=== PATIENT | female | born 1945 | race Caucasian/White ===

== ENCOUNTER → 2016-07-27 | Outpatient (CLI) | payer MEDICARE ==
[2016-07-27 11:12] LABS: Basophils % (A) 0 %; CH 29.2; CHCM 31.4; Eosinophils # (A) 0.1 k/uL (0-0.7); Eosinophils % (A) 2 %; HCT 41.3 % (34.0-46.0); HDW 2.25; HGB 13.1 gm/dL (11.4-16.0); Luc # (Auto) 0.13; Luc % (Auto) 2; Lymphocytes # (A) 1.6 k/uL (1.0-4.8); Lymphocytes % (A) 24 %; MCH 29.5 pg (25.0-35.0); MCHC 31.6 g/dL (31.0-37.0); MCV 93.3 fL (80.0-100.0); Mean Platelet Volume 6.9; Monocytes # (A) 0.3 k/uL (0-1.0); Monocytes % (A) 5 %; Neutrophils # (A) 4.4 k/uL (1.3-7.7); Neutrophils % (A) 66 %; RBC 4.43 m/uL (3.80-5.40); RDW 13.1 % (11.5-15.5); WBC 6.7 k/uL (3.8-10.6); WBC (Perox) 7.06
[2016-07-27 11:18] LABS: INR 1.1 (<1.1)
[2016-07-27 11:25] LABS: Partial Thromboplastin Time 22.9 sec (22.0-30.0)
[2016-07-27 11:30] LABS: Potassium 4.7 mmol/L (3.5-5.1)
== END | disposition home or self-care (01) ==
LOC: LABPAT 10:22
PROVIDERS: ATTEND Orthopaedic Surgery
DX: Z01.812 Encounter for preprocedural laboratory examination (principal); M16.11 Unilateral primary osteoarthritis, right hip
CPT/HCPCS: 80051; 85025; 85610; 85730; 87070

== ENCOUNTER 2016-08-03 07:30 | Inpatient (IN) | payer MEDICARE ==
[2016-09-09 16:18] VITALS: BMI 39.3
--- NOTE | 2016-09-13 13:31 | HP ---
DATE OF SURGERY: 09/14/2016 Jaycee Lucero is a 70-year-old patient seen with progressive right hip pain. After we had treatment options discussed, she elected to proceed with direct anterior right total hip arthroplasty. Consent regarding the procedure was obtained. Medical clearance was provided per Dr. Mark Arteaga. Past medical history is noninsulin dependent diabetes, hypertension, hyperlipidemia. Past surgical history is cholecystectomy, gastric bypass surgery, hysterectomy. DAILY MEDICATIONS: Atenolol, hydrochlorothiazide, Losartan, metformin, multivitamin, simvastatin, spironolactone. ALLERGIES: TETRACYCLINE. SOCIAL HISTORY: Patient denies tobacco use. PHYSICAL EVALUATION OF THE RIGHT HIP: There is very limited range of motion with severe pain, diffuse weakness. Positive hip impingement sign. Straight leg raise is negative. Right lower extremity is about inch shorter than the left. Distal neurovascular exam is intact. Right hip radiographs reveal severe osteoarthritic changes. IMPRESSION: Right hip osteoarthritis. PLAN: Direct anterior right total hip arthroplasty. MARCELLO
[2016-09-14] MEDS ORDERED: ceFAZolin 2 GM in SODIUM CHLORIDE 0.9% 100 ML IVPB ONE (05:00)
[2016-09-14] MEDS ORDERED: MELOXICAM 7.5 MG TAB PO ONE (05:00)
[2016-09-14] MEDS ORDERED: ACETAMINOPHEN TAB 500 MG TAB PO ONE (05:00)
[2016-09-14] MEDS ORDERED: TRANEXAMIC ACID 1,000 MG in SODIUM CHLORIDE 0.9% 100 ML IVPB ONE (05:00)
[2016-09-14] MEDS ORDERED: ONDANSETRON 4 MG/2 ML VIAL IVP ONE (05:17)
[2016-09-14] MEDS ORDERED: HYDROmorphone 1 MG/ML 1 ML SYRINGE IVP PRN ×4 (05:17→13:08)
[2016-09-14] MEDS ORDERED: MIDAZOLAM 2 MG/2 ML VIAL IV PRN (05:17)
[2016-09-14] MEDS ORDERED: SCOPOLAMINE 1.5MG/72HR PATCH TRANSDERM ONE (05:17)
[2016-09-14] MEDS ORDERED: DEXAMETHASONE SOD PHOSPHATE 10 MG/ML 1 ML VIAL IV ONE (05:17)
[2016-09-14] MEDS ORDERED: LACTATED RINGERS 1,000 ML IV SCH (05:17)
[2016-09-14] MEDS ORDERED: LIDOCAINE 1% 20 ML VIAL (10MG/ML) FOR IV START INTRADERMA PRN (05:17)
[2016-09-14 09:45] LABS: Glucose,Whole Blood 123 mg/dL (75-99)
[2016-09-14] MEDS ORDERED: ROPIVACAINE 246.25 MG, EPINEPHrine 0.5 MG, KETOROLAC 30 MG, cloNIDine HCL/PF 80 MCG, WA... MISCELLANE ONE ×5 (10:38)
[2016-09-14] MEDS ORDERED: MIDAZOLAM 2 MG/2 ML VIAL ONE (10:52)
[2016-09-14] MEDS ORDERED: TRANEXAMIC ACID 1,000 MG/10 ML VIAL ONE (10:52)
[2016-09-14] MEDS ORDERED: ePHEDrine 50 MG/ML 1 ML AMP ONE (10:52)
[2016-09-14] MEDS ORDERED: diphenhydrAMINE 50 MG/ML 1 ML VIAL ONE (10:52)
[2016-09-14] MEDS ORDERED: PROPOFOL 10 MG/ML 20 ML VIAL IV ONE (10:52)
[2016-09-14] MEDS ORDERED: PHENYLEPHRINE-0.9% NACL SYG 1 MG/10 ML SYRINGE ONE (10:52)
[2016-09-14] MEDS ORDERED: KETAMINE 10 MG/ML 20 ML VIAL ONE (10:52)
[2016-09-14] MEDS ORDERED: GLYCOPYRROLATE 0.2 MG/ML 2 ML VIAL ONE (10:52)
[2016-09-14] MEDS ORDERED: SODIUM CHLORIDE 0.9% 100 ML BAG ONE (10:52)
[2016-09-14] MEDS ORDERED: LIDOCAINE 1% INJ 10MG/ML (20 ML MDV) ONE (10:52)
[2016-09-14] MEDS ORDERED: ceFAZolin 3,000 MG in SODIUM CHLORIDE 0.9% IRRIGATIO 3,000 ML IRRIGATION ONE (11:45)
--- NOTE | 2016-09-14 13:07 | P.OP ---
Date of Procedure: 09/14/16 Preoperative Diagnosis: Right hip osteoarthritis Postoperative Diagnosis: Right hip osteoarthritis Procedure(s) Performed: Direct anterior right total hip arthroplasty Implants: 1. Depuy Corail KA size 10 standard collar cementless femoral stem 2. Depuy Corail pinnacle acetabular shell 52 mm press-fit 3. Depuy Corail pinnacle polyethylene acetabular liner 52 mm OD 36 mm ID 4. Depuy metal femoral head 36 mm -2 Anesthesia: local, spinal Surgeon: Ezio Holliday Top Hat Body Maker #1: Sebastian Smith Estimated Blood Loss (ml): 200 Pathology: other (Femoral head) Condition: stable Disposition: PACU Indications for Procedure: 71-year-old patient seen was symptomatically right hip osteoarthritis. After having treatment options discussed, she elected to proceed with right total hip arthroplasty. Operative Findings: see description of procedure Description of Procedure: The patient was taken to the operative suite. Patient underwent a spinal anesthetic by the department of anesthesia. Patient was then transferred to the [place] table. Patient was given preoperative IV antibiotics and TXA. Both lower extremities were placed in standard leg spars. The hip was then prepped and draped in the normal sterile orthopedic fashion. A standard anterior incision was made beginning 3 cm lateral and 1 cm distal to the ASIS extending 10 cm. Dissection was then carried down through the subcutaneous soft tissues down to the fascia overlying the tensor fascia nima. An incision was now made through the fascia. Careful dissection was taken down exposing the tensor fascia nima muscle. A Cobra retractor was now placed along the medial femoral neck and a second one along the lateral femoral neck. The venous circumflex vessels were now identified, cauterized and clipped. We identified the anterior hip capsule. An incision was made through the hip capsule along the lateral border. Tag sutures were then placed along the anterior capsule and lateral capsule. We then performed a capsulotomy. Retractors were now placed around the femoral neck itself. A Cobra retractor was now placed along the anterior acetabulum. Good exposure was now noted of the femoral head/neck complex. Residual labrum was debrided out. We placed the extremity into 3 turns of fine traction. We were then able to introduce a skid in between the femoral head and acetabulum. A placed a awl into the femoral head. We took 2 turns of traction off the extremity. Rotation was now released. The femoral head was then dislocated without difficulty. Additional releasing was performed of the capsule. The head was then reduced. All traction was released. A femoral neck cut was now made with a sagittal saw. It was completed with an osteotome at the lateral neck area. The femoral head was now removed without difficulty. The extremity was now rotated to 60 of external rotation. It was locked in position. Residual labrum was now debrided out. Serial reaming was performed of the acetabulum. Once we reached the appropriate size and a trial was position and fit nicely. The appropriate size was now chosen opened and made available. It was introduced into the acetabulum without difficulty. The C-arm/fluoroscopy was now brought into the operative field. We made sure we had a true AP pelvic view. We now under direct C-arm/fluoroscopy introduced into the acetabular component with appropriate version and inclination. It was well seated but not as stable as I would like to be. I now introduced to 6.5 mm cancellus screws which gave a good bite and purchase. It was now very stable. I now irrigated the wound with pulse lavage mechanical irrigation. The C-arm was pulled back. An appropriate liner was introduced and clicked into position. It was felt to be stable. At this point retractors were removed. The extremity was now placed into 130 external rotation with no traction. The leg was now dropped to the ground and adducted. Appropriate retractors were now positioned along the proximal femur. We also placed our femoral look into position. Additional capsular releasing was performed to gain access to the proximal femur. We now used a box osteotome. A canal finder was now utilized. Serial broaching was now performed until we reached the appropriate size with good overall rotational stability. Appropriate calcar planing was performed. A trial head/ neck was placed into position. The hip was now reduced. The C-arm/fluoroscopy was brought back into the operative field. A spot film was obtained of the nonoperative hip. A spot film was obtained of the trial components. Overlays were performed, we noted good overall alignment and positioning for determining leg length. The C-arm/fluoroscopy was pulled back. Retractors were repositioned and the hip was dislocated. The leg was again taken down to the ground and adducted. Appropriate retractors were repositioned as well as the femoral hook. All trial components were removed. The femoral implant was opened along with the femoral head. The wound was irrigated with pulse lavage mechanical irrigation. The femoral implant was introduced with good purchase and fixation noted. The femoral head was introduced with good positioning and fixation noted. Retractors were now removed. The hip was now reduced. There appeared be good positioning of the hip. A second gram of TXA was given. Bipolar cautery had been utilized intermittently through the procedure for hemostasis. The wound was irrigated copiously with pulse lavage mechanical irrigation. The fascia was repaired with Vicryl suture. The subcutaneous soft tissues were repaired in layers with Vicryl suture. The skin was approximated with pernio/Dermabond. Sterile dressings were applied. Patient was then awakened, transferred to a bed and taken to recovery in stable condition. Tee CALVILLO assisted with the procedure.
[2016-09-14] MEDS ORDERED: NALOXONE 0.4 MG/ML 1 ML VIAL IV PRN (13:08)
[2016-09-14] MEDS ORDERED: ONDANSETRON 4 MG/2 ML VIAL IVP PRN (13:08)
--- NOTE | 2016-09-14 13:08 | XR ---
Limited right hip HISTORY: Anterior hip arthroplasty Intraoperative C-arm image documents the procedure
--- NOTE | 2016-09-14 13:09 | FL ---
Fluoroscopy HISTORY: Hip arthroplasty 27 seconds fluoroscopy time supplied to the referring clinician. 1 intraoperative C-arm images docum ent the procedure. See dictated report from orthopedic surgery.
[2016-09-14 13:47] LABS: Glucose,Whole Blood 152 mg/dL (75-99)
[2016-09-14] MEDS: LACTATED RINGERS 1,000 ML IV SCH (14:59)
[2016-09-14] MEDS ORDERED: traMADol 50 MG TAB PO STA (15:07)
[2016-09-14] MEDS: traMADol 50 MG TAB PO SCH ×2 (15:12→21:24)
[2016-09-14] MEDS: ceFAZolin 2 GM in SODIUM CHLORIDE 0.9% 100 ML IVPB SCH ×2 (15:40→23:00)
[2016-09-14 16:12] LABS: Glucose,Whole Blood 164 mg/dL (75-99)
[2016-09-14] MEDS: HYDROcodone/APAP 7.5-325MG 1 EACH TAB PO PRN ×2 (16:50→23:00)
[2016-09-14 20:28] LABS: Glucose,Whole Blood 231 mg/dL (75-99)
[2016-09-14] MEDS: SENNOSIDES-DOCUSATE SODIUM 1 EACH TAB PO SCH (21:07)
[2016-09-14] MEDS: ATORVASTATIN 10 MG TAB PO SCH (21:08)
[2016-09-14] MEDS: metFORMIN 500 MG TAB PO SCH (21:08)
[2016-09-14] MEDS: LOSARTAN 50 MG TAB PO SCH ×2 (21:08→21:20)
[2016-09-14] MEDS: INSULIN LISPRO (humaLOG) 300 UNIT/3 ML VIAL SQ SCH (21:08)
[2016-09-14] MEDS: hydrOXYzine PAMOATE 25 MG CAP PO PRN (23:00)
[2016-09-15] MEDS: LACTATED RINGERS 1,000 ML IV SCH (00:02)
[2016-09-15] MEDS: HYDROcodone/APAP 7.5-325MG 1 EACH TAB PO PRN ×3 (05:42→23:46)
[2016-09-15 07:08] LABS: Glucose,Whole Blood 139 mg/dL (75-99)
[2016-09-15 07:51] LABS: Basophils % (A) 0 %; CH 28.9; CHCM 31.5; Eosinophils % (A) 0 %; HCT 32.5 % (34.0-46.0); HDW 2.32; Luc # (Auto) 0.17; Luc % (Auto) 2; Lymphocytes # (A) 1.5 k/uL (1.0-4.8); Lymphocytes % (A) 16 %; MCH 28.9 pg (25.0-35.0); MCHC 31.4 g/dL (31.0-37.0); MCV 92.1 fL (80.0-100.0); Mean Platelet Volume 7.1; Monocytes # (A) 0.5 k/uL (0-1.0); Monocytes % (A) 5 %; Neutrophils # (A) 6.8 k/uL (1.3-7.7); Neutrophils % (A) 76 %; RBC 3.52 m/uL (3.80-5.40); WBC 8.9 k/uL (3.8-10.6); WBC (Perox) 9.07
[2016-09-15] MEDS: INSULIN LISPRO (humaLOG) 300 UNIT/3 ML VIAL SQ SCH ×4 (07:55→20:38)
[2016-09-15] MEDS: MELOXICAM 7.5 MG TAB PO SCH (07:56)
[2016-09-15] MEDS: CALCIUM CARB-VIT D 500MG-200UN 1 EACH TAB PO SCH (07:56)
[2016-09-15 07:57] LABS: HGB 10.2 gm/dL (11.4-16.0)
[2016-09-15] MEDS: FAMOTIDINE 20 MG TAB PO SCH (07:57)
[2016-09-15] MEDS: ATENOLOL 50 MG TAB PO SCH (07:57)
[2016-09-15] MEDS: metFORMIN 500 MG TAB PO SCH ×2 (07:57→20:38)
[2016-09-15] MEDS: ENOXAPARIN 40 MG/0.4 ML SYRINGE SQ SCH (07:57)
[2016-09-15] MEDS: CHOLECALCIFEROL 1,000 UNIT TAB PO SCH (07:57)
[2016-09-15] MEDS: traMADol 50 MG TAB PO SCH ×4 (07:58→21:05)
[2016-09-15] MEDS ORDERED: MULTIVITAMIN PO SCH (09:00)
[2016-09-15 11:51] LABS: Glucose,Whole Blood 133 mg/dL (75-99)
[2016-09-15 12:03] LABS: Hemoglobin A1C 6.9 % (4.2-6.1)
[2016-09-15] MEDS: MULTIVITAMINS, THERA 1 EACH TAB PO SCH (12:25)
--- NOTE | 2016-09-15 12:30 | P.CONS ---
History of Present Illness - Reason for Consult Consult date: 09/15/16 Medical management - History of Present Illness This is a 71-year-old female patient of Dr. Arteaga the past medical history of diabetes mellitus type 2, hypertension, osteoarthritis, sleep apnea with CPAP, skin cancer history, morbid obesity status post lap band procedure. Patient has been admitted under the care of Dr. Holliday status post anterior approach right total hip arthroplasty completed yesterday. Patient has had no postop complications. She denies any nausea, vomiting, chest pain or shortness of breath. She states she slept on and off during the night. She does complain of sore throat. Just complains of right leg pain with ambulation. Cook catheter remains in place. She has not passed gas or had a bowel movement. Dressing was changed this morning. Patient is planning for subacute rehab at [facility]. Review of Systems All systems: negative Constitutional: Denies chills, Denies fever Eyes: denies blurred vision, denies pain Ears, nose, mouth and throat: Reports sore throat, Denies dental pain, Denies dysphagia, Denies headache, Denies mouth pain, Denies swelling in throat Cardiovascular: Denies chest pain, Denies edema, Denies leg edema, Denies shortness of breath, Denies syncope Respiratory: Denies cough, Denies cough with sputum, Denies dyspnea, Denies home oxygen Gastrointestinal: Denies abdominal pain, Denies diarrhea, Denies nausea, Denies vomiting Genitourinary: Denies dysuria, Denies hematuria Musculoskeletal: Denies myalgias Integumentary: Denies pruritus, Denies rash Neurological: Denies numbness, Denies weakness Psychiatric: Denies anxiety, Denies depression Endocrine: Denies fatigue, Denies weight change Past Medical History Past Medical History: Diabetes Mellitus, Hypertension, Osteoarthritis (OA), Sleep Apnea/CPAP/BIPAP Additional Past Medical History / Comment(s): HX SKIN CA. JUST FINISHED ANTIBIOTICS FOR UTI AND UPPER RESP INFECTION History of Any Multi-Drug Resistant Organisms: None Reported Past Surgical History: Appendectomy, Bariatric Surgery, Cholecystectomy, Hysterectomy Additional Past Surgical History / Comment(s): LAPBAND-THINKS FLUID MIGHT BE PRESENT. COLONOSCOPY. EGD Past Anesthesia/Blood Transfusion Reactions: No Reported Reaction Additional Past Anesthesia/Blood Transfusion Reaction / Comm: NO HX BLOOD TRANSFUSION Smoking Status: Never smoker Additional Past Alcohol Use History / Comment(s): Patient is a lifelong nonsmoker. She denies any illicit drug use, alcohol abuse. - Past Family History Mother Family Medical History: Deep Vein Thrombosis (DVT) Medications and Allergies Home Medications Medication Instructions Recorded Confirmed Type Aspirin [Children's Aspirin] 81 mg PO BID 07/28/16 09/14/16 History Atenolol [Tenormin] 50 mg PO QAM 07/28/16 09/14/16 History Calcium Carbonate/Vitamin D3 1 tab PO DAILY 07/28/16 09/14/16 History [Calcium 500-Vit D3 200 Tablet] Cholecalciferol (Vitamin D3) 2,000 unit PO DAILY 07/28/16 09/14/16 History [Vitamin D3] Hydrochlorothiazide 25 mg PO QAM 07/28/16 09/14/16 History [Hydrochlorothiazide] Losartan Potassium [Losartan 100 mg PO HS 07/28/16 09/14/16 History Potassium] Multivitamin [Multiple Vitamins] 1 tab PO DAILY 07/28/16 09/14/16 History Simvastatin [Zocor] 10 mg PO HS 07/28/16 09/14/16 History Spironolactone [Aldactone] 12.5 mg PO DAILY 07/28/16 09/14/16 History metFORMIN HCL ER [Glucophage Xr] 500 mg PO BID 07/28/16 09/14/16 History Allergies Allergy/AdvReac Type Severity Reaction Status Date / Time Tetracyclines Allergy Rash/Hives Verified 09/14/16 09:06 Physical Exam Vitals: Vital Signs Temp Pulse Pulse Resp BP Pulse Ox 09/15/16 07:00 97.6 F 65 15 138/63 09/15/16 05:51 66 98/51 09/15/16 01:23 97.7 F 59 L 16 90/57 93 L 09/14/16 21:21 108/71 09/14/16 20:35 98.1 F 70 16 104/67 92 L 09/14/16 20:00 16 09/14/16 16:30 63 114/72 97 09/14/16 16:00 69 129/80 98 09/14/16 15:36 64 141/82 97 09/14/16 15:22 73 16 153/76 99 09/14/16 15:06 76 16 150/87 100 09/14/16 14:51 97.5 F L 74 16 133/72 97 09/14/16 14:36 76 16 148/82 97 09/14/16 14:15 76 18 148/54 100 09/14/16 14:00 74 16 135/58 99 09/14/16 13:42 74 18 123/70 96 09/14/16 13:30 76 18 130/59 94 L 09/14/16 13:27 97.4 F L 77 18 117/47 96 09/14/16 09:10 98.4 F 66 16 160/70 94 L Intake and Output 09/14/16 09/15/16 09/15/16 22:59 06:59 14:59 Intake Total 320 100 Output Total 375 125 Balance -55 -25 Intake: IV 320 100 Lactated Ringers 1,000 ml 320 @ 80 mls/hr IV .[id number] JACOB Rx#:[id number] ceFAZolin 2 gm In Sodium 100 Chloride 0.9% 100 ml @ 100 mls/hr IVPB Q8HR JACOB Rx#:[id number] Output: Urine 375 125 Uretheral (Cook) 375 125 Other: Voiding Method Indwelling Catheter Indwelling Catheter Gen: This is a 71-year-old female. She is sitting up in a chair and appears to be comfortable. HEENT: Head is atraumatic, normocephalic. Pupils equal, round. Sclerae is anicteric. NECK: Supple. No JVD. No lymphadenopathy. No thyromegaly. LUNGS: Clear to auscultation. No wheezes or rhonchi. No intercostal retractions. HEART: Regular rate and rhythm. No murmur. ABDOMEN: Soft. Bowel sounds are present. No masses. No tenderness. EXTREMITIES: No pedal edema. No calf tenderness. Dressing to the right hip is clean and dry. NEUROLOGICAL: Patient is awake, alert and oriented x3. Cranial nerves 2 through 12 are grossly intact. Results CBC & Chem 7: 09/15/16 07:02 Labs: Abnormal Lab Results - Last 24 Hours (Table) 09/14/16 09/14/16 09/14/16 Range/Units 09:38 13:41 16:04 RBC (3.80-5.40) m/uL Hgb (11.4-16.0) gm/dL Hct (34.0-46.0) % POC Glucose (mg/dL) 123 H 152 H 164 H (75-99) mg/dL 09/14/16 09/15/16 09/15/16 Range/Units 20:26 07:02 07:02 RBC 3.52 L (3.80-5.40) m/uL Hgb 10.2 L D (11.4-16.0) gm/dL Hct 32.5 L (34.0-46.0) % POC Glucose (mg/dL) 231 H 139 H (75-99) mg/dL Assessment and Plan Plan: 1. Osteoarthritis of the right hip status post anterior approach total hip arthroplasty. Continue current plan of care with orthopedic surgeon. Continue current pain management. Continue PT and OT. Cook catheter to be removed. 2. Hypertension. Continue losartan 100 mg at bedtime, hydrochlorothiazide on hold, continue atenolol 50 mg in the morning. Hold Aldactone. 3. Diabetes mellitus type 2. Continue metformin 500 mg twice daily and Humalog scale. 4. Hyperlipidemia. Continue simvastatin 10 mg at bedtime. 5. DVT prophylaxis. Continue Lovenox Patient will be admitted to the hospital for a minimum of 2 night stay. Discharge plan: [facility] Impression and plan of care have been directed as dictated by the signing physician. Jaycee De La Cruz nurse practitioner acting as scribe for signing physician.
--- NOTE | 2016-09-15 13:04 | P.PN ---
Subjective Principal diagnosis: Status post right total hip arthroplasty Patient seen today resting in her hospital chair, she appears comfortable. She ambulated minimally with therapy. Urinary catheter is still in place. She denies any headaches, chest pain, shortness of breath, fever or chills. Objective - Vital Signs Vital signs: Vital Signs Temp 97.6 F 09/15/16 07:00 Pulse 65 09/15/16 07:00 Resp 15 09/15/16 07:00 BP 138/63 09/15/16 07:00 Pulse Ox 95 09/15/16 07:50 Intake & Output 09/14/16 09/15/16 09/15/16 18:59 06:59 18:59 Intake Total 801 420 360 Output Total 325 500 120 Balance 476 -80 240 Weight 97.522 kg Intake: IV 801 420 Lactated Ringers 1,000 ml 320 @ 80 mls/hr IV .[id number] JACOB Rx#:[id number] ceFAZolin 2 gm In Sodium 100 Chloride 0.9% 100 ml @ 100 mls/hr IVPB Q8HR JACOB Rx#:[id number] Oral 360 Output: Urine 125 500 120 Uretheral (Cook) 500 120 Estimated Blood Loss 200 Other: Voiding Method Indwelling Catheter Indwelling Catheter Indwelling Catheter - Exam Right lower extremity: Incision is clean, dry and intact. Minimal soft tissue swelling and ecchymosis on the medial and lateral aspects of the incision. Calf is soft, no tenderness with palpation. Plantar flexion, dorsiflexion, EHL, FHL are intact. Sensory exam light touch is intact throughout the extremity, dorsal pedis pulses 2+ - Labs CBC & Chem 7: 09/15/16 07:02 Labs: Abnormal Lab Results - Last 24 Hours (Table) 09/14/16 09/14/16 09/14/16 Range/Units 13:41 16:04 20:26 RBC (3.80-5.40) m/uL Hgb (11.4-16.0) gm/dL Hct (34.0-46.0) % POC Glucose (mg/dL) 152 H 164 H 231 H (75-99) mg/dL 09/15/16 09/15/16 09/15/16 Range/Units 07:02 07:02 11:46 RBC 3.52 L (3.80-5.40) m/uL Hgb 10.2 L D (11.4-16.0) gm/dL Hct 32.5 L (34.0-46.0) % POC Glucose (mg/dL) 139 H 133 H (75-99) mg/dL Assessment and Plan Plan: Assessment: 1. Postop day 1 status post right total hip arthroplasty Plan: 1. Pain control, continue use of oral medication 2. Continue therapy 3. Remove urinary catheter 4. Daily dressing changes/ice the hip region 5. GI and DVT prophylaxis, continue subcu Lovenox 6. Medical recommendations 7. Discharge planning: Patient is interested in rehab Time with Patient: Less than 30
--- NOTE | 2016-09-15 15:19 | XR ---
EXAMINATION TYPE: XR chest 2V DATE OF EXAM: 09/15/2016 COMPARISON: NONE HISTORY: Rehabilitation placement TECHNIQUE: Frontal and lateral views of the chest are obtained. FINDINGS: There is no focal air space opacity, pleural effusion, or pneumothorax seen. The cardiac silhouette size is within normal limits. Patient is status post lap band. Heart is enlarged although patient is rotated, exam is expiratory. 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 The osseous structures are intact. IMPRESSION: Cardiomegaly. Postop changes.
[2016-09-15 16:23] LABS: Glucose,Whole Blood 139 mg/dL (75-99)
[2016-09-15] MEDS: hydrOXYzine PAMOATE 25 MG CAP PO PRN (16:28)
[2016-09-15 20:24] LABS: Glucose,Whole Blood 159 mg/dL (75-99)
[2016-09-15] MEDS: LOSARTAN 50 MG TAB PO SCH (20:38)
[2016-09-15] MEDS: ATORVASTATIN 10 MG TAB PO SCH (20:38)
[2016-09-15] MEDS: SENNOSIDES-DOCUSATE SODIUM 1 EACH TAB PO SCH (21:06)
[2016-09-16] MEDS: HYDROcodone/APAP 7.5-325MG 1 EACH TAB PO PRN ×2 (05:32→20:40)
[2016-09-16 07:19] LABS: Glucose,Whole Blood 110 mg/dL (75-99)
[2016-09-16] MEDS: metFORMIN 500 MG TAB PO SCH ×2 (08:41→20:41)
[2016-09-16] MEDS: traMADol 50 MG TAB PO SCH ×4 (08:41→22:55)
[2016-09-16] MEDS: MELOXICAM 7.5 MG TAB PO SCH (08:42)
[2016-09-16] MEDS: FAMOTIDINE 20 MG TAB PO SCH (08:42)
[2016-09-16] MEDS: CALCIUM CARB-VIT D 500MG-200UN 1 EACH TAB PO SCH (08:43)
[2016-09-16] MEDS: CHOLECALCIFEROL 1,000 UNIT TAB PO SCH (08:43)
[2016-09-16] MEDS: INSULIN LISPRO (humaLOG) 300 UNIT/3 ML VIAL SQ SCH ×4 (08:43→20:35)
[2016-09-16] MEDS: ENOXAPARIN 40 MG/0.4 ML SYRINGE SQ SCH (08:44)
[2016-09-16] MEDS: LACTATED RINGERS 1,000 ML IV SCH (09:31)
--- NOTE | 2016-09-16 11:33 | P.DS ---
Providers Date of admission: 09/14/16 08:37 Expected date of discharge: 09/17/16 Attending physician: Ezio Holliday Consults: 09/14/16 13:08 Consult Physician Routine Consulting Provider: Cj Harmon Reason/Comments: Medical management Do you want consulting provider notified?: Yes Primary care physician: Mark Arteaga [facility] Hospital Course: Date of admission: 09/14/2016 Date of discharge: 09/17/2016 Admission diagnosis: Status post right total hip arthroplasty Discharge diagnosis: Same Attending physician: Dr. Holliday Surgical procedures: Right total hip arthroplasty Brief history: Patient is a 71-year-old female with a history of progressive primary right hip osteoarthritis. At this point patient has failed conservative treatment measures and has opted to proceed with a elective right total hip arthroplasty. Hospital course: Details of patient's surgery can be found in operative report. Patient tolerated the procedure well and was subsequently transported to orthopedic floor. Patient's orthopeidc and medical care was provided daily. Patient had daily laboratory tests performed for evaluation of overall blood counts. Patient had daily physical therapy to include strengthening range of motion as well as education with walker ambulation. Patient was treated with Lovenox for their postoperative DVT prophylaxis during their inpatient stay. Patient was noted to have a relatively uneventful postoperative course. Patient reported satisfactory pain control with oral pain medications by postoperative day 0. Patient showed satisfactory progress with physical therapy. Patient moved steadily through the program and had no difficulty meeting the goals by postoperative day 3. Given patient's otherwise satisfactory course and having met physical therapy goals, plan is to discharge patient rehab on postoperative day 3. Discharge condition/disposition: Patient will be discharged to rehab in stable condition. Discharge medications: Instructions are given on resumption of patient's normal daily medications per primary care recommendation, in addition patient will be prescribed Holland 7.5 mg/325 mg, Colace 100 mg, Pepcid 20 mg, Lovenox 40 mg. Discharge instructions: 1. Wound care and infection precautions, [keep incision dry and covered while showering], no lotions, creams, moisturizers. No soaking, tubs, pools, hottubs. Do not scrub over the incision. 2. Weight-bear [as tolerated] with walker / cane until follow-up. 3. Ice and elevate when necessary. Do not exceed 20 minutes per hour with ice pack. 4. Utilize compression sleeve until seen at first follow up appointment. 5. Visiting nursing care. 6. Home physical therapy. 7. Pain meds and anticoagulants per prescription. 8. Pain medication has potential to cause constipation. Increase oral fluid and fiber intake. Contact primary care provider if you have not had a bowel movement within 48 hours after discharge 9. No anti-inflammatory medication until discussed at first post operative visit, this including Motrin, Aleve, Mobic, Diclofenac. 10. Follow up in office at 2 weeks postop with Tee Smith PA-C 11. Follow up with your primary care doctor 7-10 days after discharge. 12. Contact [facility] with any questions, . Procedures: Right total hip arthroplasty Patient Condition at Discharge: Good Plan - Discharge Summary New Discharge Prescriptions: New Docusate [Colace] 100 mg PO DAILY #30 capsule Enoxaparin [Lovenox] 40 mg SQ DAILY #30 syringe Famotidine [Pepcid] 20 mg PO DAILY #30 tablet HYDROcodone/APAP 7.5-325MG [Holland 7.5] 1 - 2 each PO Q6HR PRN #60 tab PRN Reason: Pain No Action Spironolactone [Aldactone] 12.5 mg PO DAILY metFORMIN HCL ER [Glucophage Xr] 500 mg PO BID Simvastatin [Zocor] 10 mg PO HS Multivitamin [Multiple Vitamins] 1 tab PO DAILY Losartan Potassium [Losartan Potassium] 100 mg PO HS Hydrochlorothiazide [Hydrochlorothiazide] 25 mg PO QAM Cholecalciferol (Vitamin D3) [Vitamin D3] 2,000 unit PO DAILY Calcium Carbonate/Vitamin D3 [Calcium 500-Vit D3 200 Tablet] 1 tab PO DAILY Atenolol [Tenormin] 50 mg PO QAM Aspirin [Children's Aspirin] 81 mg PO BID Discharge Medication List Aspirin [Children's Aspirin] 81 mg PO BID 07/28/16 [History] Atenolol [Tenormin] 50 mg PO QAM 07/28/16 [History] Calcium Carbonate/Vitamin D3 [Calcium 500-Vit D3 200 Tablet] 1 tab PO DAILY [History] Cholecalciferol (Vitamin D3) [Vitamin D3] 2,000 unit PO DAILY 07/28/16 [History] Hydrochlorothiazide [Hydrochlorothiazide] 25 mg PO QAM 07/28/16 [History] Losartan Potassium [Losartan Potassium] 100 mg PO HS 07/28/16 [History] Multivitamin [Multiple Vitamins] 1 tab PO DAILY 07/28/16 [History] Simvastatin [Zocor] 10 mg PO HS 07/28/16 [History] Spironolactone [Aldactone] 12.5 mg PO DAILY 07/28/16 [History] metFORMIN HCL ER [Glucophage Xr] 500 mg PO BID 07/28/16 [History] Docusate [Colace] 100 mg PO DAILY #30 capsule 09/17/16 [Rx] Enoxaparin [Lovenox] 40 mg SQ DAILY #30 syringe 09/17/16 [Rx] Famotidine [Pepcid] 20 mg PO DAILY #30 tablet 09/17/16 [Rx] HYDROcodone/APAP 7.5-325MG [Holland 7.5] 1 - 2 each PO Q6HR PRN #60 tab 09/17/16 [ Rx] Follow up Appointment(s)/Referral(s): Sebastian Smith PAC [PHYSICIAN ART SUPERVISOR] - 2 Weeks Activity/Diet/Wound Care/Special Instructions: Orthopedic Discharge Instructions: 1. Wound care and infection precautions, keep incision dry and covered while showering, no lotions, creams, moisturizers. No soaking, pools, hot tubs. Do not scrub over incision. 2. Weight-bear as tolerated with walker / cane until follow-up. 3. Ice and elevate when necessary. Do not exceed 20 minutes per hour with ice pack. 4. Utilize compression sleeve until seen at first follow up appointment. 5. Visiting nursing care. 6. Home physical therapy. 7. Pain meds and anticoagulants per prescription. 8. Pain medication has potential to cause constipation. Increase oral fluid and fiber intake. Contact primary care provider if you have not had a bowel movement within 48 hours after discharge. 9. No anti-inflammatory medication until discussed at first post operative visit, this including Motrin, Aleve, Mobic, Diclofenac. 10. Follow up in office at 2 weeks postop with Tee Smith PA-C 11. Follow up with your primary care doctor 7-10 days after discharge. 12. Contact [facility] with any questions, . Discharge Disposition: TRANSFER TO SNF/ECF
--- NOTE | 2016-09-16 11:42 | P.PN ---
Subjective This is a 71-year-old female patient of Dr. Arteaga the past medical history of diabetes mellitus type 2, hypertension, osteoarthritis, sleep apnea with CPAP, skin cancer history, morbid obesity status post lap band procedure. Patient has been admitted under the care of Dr. Holliday status post anterior approach right total hip arthroplasty completed yesterday. Patient has had no postop complications. She denies any nausea, vomiting, chest pain or shortness of breath. She states she slept on and off during the night. She does complain of sore throat. Just complains of right leg pain with ambulation. Cook catheter remains in place. She has not passed gas or had a bowel movement. Dressing was changed this morning. Patient is planning for subacute rehab at [facility]. 09/16: Patient is complaining of pain to her right hip when she stands but otherwise well controlled. She has not had a bowel movement yet. Chest x-ray shows cardiomegaly and postop changes. Objective - Vital Signs Vital signs: Vital Signs Temp 98 F 09/16/16 07:00 Pulse 66 09/16/16 07:00 Resp 15 09/16/16 07:00 BP 99/62 09/16/16 07:00 Pulse Ox 98 09/16/16 07:00 Intake & Output 09/15/16 09/16/16 09/16/16 18:59 06:59 18:59 Intake Total 1880 Output Total 120 500 Balance 1760 -500 Intake: IV 500 Lactated Ringers 1,000 ml 400 @ 80 mls/hr IV .[id number] JACOB Rx#:[id number] ceFAZolin 2 gm In Sodium 100 Chloride 0.9% 100 ml @ 100 mls/hr IVPB Q8HR JACOB Rx#:[id number] Oral 1380 Output: Urine 120 500 Uretheral (Cook) 120 Other: Voiding Method Indwelling Catheter Toilet # Voids 1 - Exam Gen: This is a 71-year-old female. She is sitting up in a chair and appears to be comfortable. HEENT: Head is atraumatic, normocephalic. Pupils equal, round. Sclerae is anicteric. NECK: Supple. No JVD. No lymphadenopathy. No thyromegaly. LUNGS: Clear to auscultation. No wheezes or rhonchi. No intercostal retractions. HEART: Regular rate and rhythm. No murmur. ABDOMEN: Soft. Bowel sounds are present. No masses. No tenderness. EXTREMITIES: No pedal edema. No calf tenderness. Dressing to the right hip is clean and dry. NEUROLOGICAL: Patient is awake, alert and oriented x3. Cranial nerves 2 through 12 are grossly intact. - Labs CBC & Chem 7: 09/15/16 07:02 Labs: Abnormal Lab Results - Last 24 Hours (Table) 09/15/16 09/15/16 09/15/16 Range/Units 07:02 11:46 16:20 POC Glucose (mg/dL) 133 H 139 H (75-99) mg/dL Hemoglobin A1c 6.9 H (4.2-6.1) % 09/15/16 09/16/16 Range/Units 20:12 06:55 POC Glucose (mg/dL) 159 H 110 H (75-99) mg/dL Hemoglobin A1c (4.2-6.1) % Assessment and Plan Plan: 1. Osteoarthritis of the right hip status post anterior approach total hip arthroplasty. Continue current plan of care with orthopedic surgeon. Continue current pain management. Continue PT and OT. Cook catheter was removed. 2. Hypertension. Continue losartan 100 mg at bedtime, hydrochlorothiazide on hold, continue atenolol 50 mg in the morning. Hold Aldactone. 3. Diabetes mellitus type 2. Continue metformin 500 mg twice daily and Humalog scale. 4. Hyperlipidemia. Continue simvastatin 10 mg at bedtime. 5. DVT prophylaxis. Continue Lovenox [facility] Impression and plan of care have been directed as dictated by the signing physician. Jaycee De La Cruz nurse practitioner acting as scribe for signing physician.
[2016-09-16 11:54] LABS: Glucose,Whole Blood 97 mg/dL (75-99)
[2016-09-16] MEDS: ATENOLOL 50 MG TAB PO SCH (12:28)
[2016-09-16] MEDS: MULTIVITAMINS, THERA 1 EACH TAB PO SCH (12:31)
--- NOTE | 2016-09-16 12:32 | P.PN ---
Subjective Principal diagnosis: Status post right total hip arthroplasty Patient seen today resting in her hospital chair, she appears comfortable. She ambulated minimally with therapy. She notes more discomfort in the hip today. She denies any headaches, chest pain, shortness of breath, fever or chills. Objective - Vital Signs Vital signs: Vital Signs Temp 98 F 09/16/16 07:00 Pulse 70 09/16/16 12:27 Resp 15 09/16/16 07:00 BP 135/92 09/16/16 12:27 Pulse Ox 98 09/16/16 07:00 Intake & Output 09/15/16 09/16/16 09/16/16 18:59 06:59 18:59 Intake Total 1880 450 Output Total 120 500 Balance 1760 -500 450 Intake: IV 500 Lactated Ringers 1,000 ml 400 @ 80 mls/hr IV .[id number] JACOB Rx#:[id number] ceFAZolin 2 gm In Sodium 100 Chloride 0.9% 100 ml @ 100 mls/hr IVPB Q8HR JACOB Rx#:[id number] Oral 1380 450 Output: Urine 120 500 Uretheral (Cook) 120 Other: Voiding Method Indwelling Catheter Toilet # Voids 1 - Exam Right lower extremity: Incision is clean, dry and intact. Minimal soft tissue swelling and ecchymosis on the medial and lateral aspects of the incision. Calf is soft, no tenderness with palpation. Plantar flexion, dorsiflexion, EHL, FHL are intact. Sensory exam light touch is intact throughout the extremity, dorsal pedis pulses 2+ - Labs CBC & Chem 7: 09/15/16 07:02 Labs: Abnormal Lab Results - Last 24 Hours (Table) 09/15/16 09/15/16 09/15/16 Range/Units 07:02 16:20 20:12 POC Glucose (mg/dL) 139 H 159 H (75-99) mg/dL Hemoglobin A1c 6.9 H (4.2-6.1) % 09/16/16 Range/Units 06:55 POC Glucose (mg/dL) 110 H (75-99) mg/dL Hemoglobin A1c (4.2-6.1) % Assessment and Plan Plan: Assessment: 1. Postop day #2 status post right total hip arthroplasty Plan: 1. Pain control, continue use of oral medication 2. Continue therapy 3. Daily dressing changes/ice the hip region 4. GI and DVT prophylaxis, continue subcu Lovenox 5. Medical recommendations 6. Discharge planning: Patient likely discharged to rehab today Time with Patient: Less than 30
[2016-09-16 17:35] LABS: Glucose,Whole Blood 162 mg/dL (75-99)
[2016-09-16 20:12] LABS: Glucose,Whole Blood 127 mg/dL (75-99)
[2016-09-16] MEDS: SENNOSIDES-DOCUSATE SODIUM 1 EACH TAB PO SCH (20:41)
[2016-09-16] MEDS: LOSARTAN 50 MG TAB PO SCH (20:41)
[2016-09-17] MEDS: ATORVASTATIN 10 MG TAB PO SCH (05:11)
[2016-09-17 07:26] LABS: Glucose,Whole Blood 130 mg/dL (75-99)
[2016-09-17 07:55] LABS: Basophils % (A) 0 %; CH 28.9; CHCM 31.6; Eosinophils # (A) 0.2 k/uL (0-0.7); Eosinophils % (A) 2 %; HCT 33.1 % (34.0-46.0); HDW 2.28; HGB 10.7 gm/dL (11.4-16.0); Luc # (Auto) 0.14; Luc % (Auto) 2; Lymphocytes # (A) 1.6 k/uL (1.0-4.8); Lymphocytes % (A) 21 %; MCH 29.8 pg (25.0-35.0); MCHC 32.4 g/dL (31.0-37.0); MCV 91.8 fL (80.0-100.0); Monocytes # (A) 0.4 k/uL (0-1.0); Monocytes % (A) 5 %; Neutrophils # (A) 5.2 k/uL (1.3-7.7); Neutrophils % (A) 70 %; WBC 7.4 k/uL (3.8-10.6); WBC (Perox) 7.81
[2016-09-17] MEDS: INSULIN LISPRO (humaLOG) 300 UNIT/3 ML VIAL SQ SCH ×2 (08:40→12:13)
[2016-09-17 08:47] VITALS: BP 150/66; RESP 18; TEMP 100.1
[2016-09-17] MEDS: traMADol 50 MG TAB PO SCH (08:48)
[2016-09-17] MEDS: CHOLECALCIFEROL 1,000 UNIT TAB PO SCH (08:49)
[2016-09-17] MEDS: FAMOTIDINE 20 MG TAB PO SCH (08:49)
[2016-09-17] MEDS: CALCIUM CARB-VIT D 500MG-200UN 1 EACH TAB PO SCH (08:49)
[2016-09-17] MEDS: ENOXAPARIN 40 MG/0.4 ML SYRINGE SQ SCH (08:49)
[2016-09-17] MEDS: ATENOLOL 50 MG TAB PO SCH (08:49)
[2016-09-17] MEDS: metFORMIN 500 MG TAB PO SCH (08:50)
[2016-09-17] MEDS: MELOXICAM 7.5 MG TAB PO SCH (08:50)
[2016-09-17] MEDS: HYDROcodone/APAP 7.5-325MG 1 EACH TAB PO PRN (08:54)
--- NOTE | 2016-09-17 09:10 | P.PN ---
Subjective Principal diagnosis: Status post right total hip arthroplasty Patient seen today resting in her hospital chair, she appears comfortable. She denies any headaches, chest pain, shortness of breath, fever or chills. Objective - Vital Signs Vital signs: Vital Signs Temp 100.1 F H 09/17/16 08:46 Pulse 85 09/17/16 08:46 Resp 18 09/17/16 08:46 BP 150/66 09/17/16 08:46 Pulse Ox 96 09/17/16 08:46 Intake & Output 09/16/16 09/17/16 09/17/16 18:59 06:59 18:59 Intake Total 930 3360 Balance 930 3360 Weight 97.522 kg Intake: Oral 930 3360 Other: Voiding Method Toilet # Voids 2 1 - Exam Right lower extremity: Incision is clean, dry and intact. Minimal soft tissue swelling and ecchymosis on the medial and lateral aspects of the incision. Calf is soft, no tenderness with palpation. Plantar flexion, dorsiflexion, EHL, FHL are intact. Sensory exam light touch is intact throughout the extremity, dorsal pedis pulses 2+ - Labs CBC & Chem 7: 09/17/16 06:45 Labs: Abnormal Lab Results - Last 24 Hours (Table) 09/16/16 09/16/16 09/17/16 Range/Units 17:29 20:05 06:45 RBC 3.60 L (3.80-5.40) m/uL Hgb 10.7 L (11.4-16.0) gm/dL Hct 33.1 L (34.0-46.0) % POC Glucose (mg/dL) 162 H 127 H (75-99) mg/dL 09/17/16 Range/Units 07:07 RBC (3.80-5.40) m/uL Hgb (11.4-16.0) gm/dL Hct (34.0-46.0) % POC Glucose (mg/dL) 130 H (75-99) mg/dL Assessment and Plan Plan: Assessment: 1. Postop day #3 status post right total hip arthroplasty Plan: 1. Pain control, continue use of oral medication 2. Continue therapy 3. Daily dressing changes/ice the hip region 4. GI and DVT prophylaxis, continue subcu Lovenox 5. Medical recommendations 6. Discharge planning: Patient likely discharged to rehab today Time with Patient: Less than 30
[2016-09-17 11:56] LABS: Glucose,Whole Blood 103 mg/dL (75-99)
--- NOTE | 2016-09-17 12:02 | P.PN ---
Subjective This is a 71-year-old female patient of Dr. Arteaga the past medical history of diabetes mellitus type 2, hypertension, osteoarthritis, sleep apnea with CPAP, skin cancer history, morbid obesity status post lap band procedure. Patient has been admitted under the care of Dr. Holliday status post anterior approach right total hip arthroplasty completed yesterday. Patient has had no postop complications. She denies any nausea, vomiting, chest pain or shortness of breath. She states she slept on and off during the night. She does complain of sore throat. Just complains of right leg pain with ambulation. Cook catheter remains in place. She has not passed gas or had a bowel movement. Dressing was changed this morning. Patient is planning for subacute rehab at [facility]. 09/16: Patient is complaining of pain to her right hip when she stands but otherwise well controlled. She has not had a bowel movement yet. Chest x-ray shows cardiomegaly and postop changes. 09/17: Patient is scheduled for discharge to [facility] today in stable condition. Medication reconciliation was completed by orthopedics. Patient is complaining of tingling to his fingers in both hands most likely related to cervical spine radiculopathy. Objective - Vital Signs Vital signs: Vital Signs Temp 100.1 F H 09/17/16 08:46 Pulse 85 09/17/16 08:46 Resp 18 09/17/16 08:46 BP 150/66 09/17/16 08:46 Pulse Ox 96 09/17/16 08:46 Intake & Output 09/16/16 09/17/16 09/17/16 18:59 06:59 18:59 Intake Total 930 3360 Balance 930 3360 Weight 97.522 kg Intake: Oral 930 3360 Other: Voiding Method Toilet # Voids 2 1 - Exam Gen: This is a 71-year-old female. She is sitting up in a chair and appears to be comfortable. HEENT: Head is atraumatic, normocephalic. Pupils equal, round. Sclerae is anicteric. NECK: Supple. No JVD. No lymphadenopathy. No thyromegaly. LUNGS: Clear to auscultation. No wheezes or rhonchi. No intercostal retractions. HEART: Regular rate and rhythm. No murmur. ABDOMEN: Soft. Bowel sounds are present. No masses. No tenderness. EXTREMITIES: No pedal edema. No calf tenderness. Dressing to the right hip is clean and dry. NEUROLOGICAL: Patient is awake, alert and oriented x3. Cranial nerves 2 through 12 are grossly intact. - Labs CBC & Chem 7: 09/17/16 06:45 Labs: Abnormal Lab Results - Last 24 Hours (Table) 09/16/16 09/16/16 09/17/16 Range/Units 17:29 20:05 06:45 RBC 3.60 L (3.80-5.40) m/uL Hgb 10.7 L (11.4-16.0) gm/dL Hct 33.1 L (34.0-46.0) % POC Glucose (mg/dL) 162 H 127 H (75-99) mg/dL 09/17/16 Range/Units 07:07 RBC (3.80-5.40) m/uL Hgb (11.4-16.0) gm/dL Hct (34.0-46.0) % POC Glucose (mg/dL) 130 H (75-99) mg/dL Assessment and Plan Plan: 1. Osteoarthritis of the right hip status post anterior approach total hip arthroplasty. Continue current plan of care with orthopedic surgeon. Continue current pain management. Continue PT and OT. Cook catheter was removed. 2. Hypertension. Continue losartan 100 mg at bedtime, hydrochlorothiazide on hold, continue atenolol 50 mg in the morning. Hold Aldactone. 3. Diabetes mellitus type 2. Continue metformin 500 mg twice daily and Humalog scale. 4. Hyperlipidemia. Continue simvastatin 10 mg at bedtime. 5. DVT prophylaxis. Continue Lovenox 6. Cervical spine radiculopathy with numbness in her fingers bilaterally [facility] Impression and plan of care have been directed as dictated by the signing physician. Jaycee De La Cruz nurse practitioner acting as scribe for signing physician.
[2016-09-17 13:43] VITALS: PULSE 81
== END 2016-09-17 15:04 | DRG 470 ==
LOC: 2ORMAIN 09-14 08:37 → 3SUR 09-14 13:20
PROVIDERS: ADMIT Orthopaedic Surgery; ATTEND Orthopaedic Surgery
PROC: 0SR902A Replacement of Right Hip Joint with Metal on Polyethylene Synthetic Substitute, Uncemented, Open Approach (ICD-10-PCS; principal; 2016-09-14 10:15)
DX: M16.11 Unilateral primary osteoarthritis, right hip (principal); I11.9 Hypertensive heart disease without heart failure; E11.9 Type 2 diabetes mellitus without complications; E78.5 Hyperlipidemia, unspecified; G47.30 Sleep apnea, unspecified; M54.12 Radiculopathy, cervical region; Z79.84 Long term (current) use of oral hypoglycemic drugs; Z79.899 Other long term (current) drug therapy; Z85.828 Personal history of other malignant neoplasm of skin; Z98.84 Bariatric surgery status; Z88.1 Allergy status to other antibiotic agents
CPT/HCPCS: 71020; 73501; 83036; 85025; 86850; 86900; 86901; 88300; 94760

== ENCOUNTER → 2016-09-08 | Outpatient (CLI) | payer MEDICARE ==
[2016-09-08 11:07] LABS: Basophils % (A) 0 %; CH 29.4; CHCM 32.3; Eosinophils # (A) 0.1 k/uL (0-0.7); Eosinophils % (A) 2 %; HCT 42.4 % (34.0-46.0); HDW 2.36; HGB 13.8 gm/dL (11.4-16.0); Luc # (Auto) 0.09; Luc % (Auto) 1; Lymphocytes # (A) 1.4 k/uL (1.0-4.8); Lymphocytes % (A) 21 %; MCH 29.6 pg (25.0-35.0); MCHC 32.4 g/dL (31.0-37.0); MCV 91.4 fL (80.0-100.0); Mean Platelet Volume 7.2; Monocytes # (A) 0.3 k/uL (0-1.0); Monocytes % (A) 4 %; Neutrophils # (A) 4.8 k/uL (1.3-7.7); Neutrophils % (A) 72 %; Potassium 4.5 mmol/L (3.5-5.1); RBC 4.64 m/uL (3.80-5.40); RDW 13.7 % (11.5-15.5); WBC 6.7 k/uL (3.8-10.6); WBC (Perox) 6.62
[2016-09-08 11:09] LABS: INR 1.1 (<1.2); Partial Thromboplastin Time 23.3 sec (22.0-30.0); Prothrombin Time 11.4 sec (9.0-12.0)
== END | disposition home or self-care (01) ==
LOC: LABPAT 10:08
PROVIDERS: ATTEND Orthopaedic Surgery
DX: Z01.812 Encounter for preprocedural laboratory examination (principal); M16.11 Unilateral primary osteoarthritis, right hip; Z79.01 Long term (current) use of anticoagulants
CPT/HCPCS: 36415; 80051; 85025; 85610; 85730

== ENCOUNTER → 2016-09-10 | Outpatient (CLI) | payer MEDICARE ==
[2016-09-10 09:56] VITALS: BP 148/87; PULSE 67; TEMP 98; BMI 39.6
--- NOTE | 2016-09-10 10:36 | P.HPBAR ---
Bariatric H&P - History & Physicial H&P Date: 09/10/16 History & Physicial: Visit/CC: dr diaz Patient initial contact: Initial weight: Initial weight in pounds: Height: 5 ft 2 in Initial BMI: Last weight: Current weight: 98.203 kg Current weight in pounds: 216.50 Current BMI: 39.6 [place] body weight (based on NIH guidelines): 49.895 kg Excess body weight loss: The patient is a 70 year-old F who presents for Bariatric Assessment. Patient is requesting fluid removed from her LAP-BAND. She is scheduled for hip surgery with Dr. shukla Past Medical History Past Medical History: Diabetes Mellitus, Hypertension, Osteoarthritis (OA), Sleep Apnea/CPAP/BIPAP History of Any Multi-Drug Resistant Organisms: None Reported Past Surgical History: Appendectomy, Bariatric Surgery, Cholecystectomy, Hysterectomy Past Anesthesia/Blood Transfusion Reactions: No Reported Reaction Past Psychological History: No Psychological Hx Reported Smoking Status: Never smoker Past Alcohol Use History: None Reported Past Drug Use History: None Reported Surgical - Exam Vital Signs Temp Pulse BP 98.0 F 67 148/87 09/10/16 09:41 09/10/16 09:41 09/10/16 09:41 - General well developed - Eyes PERRL - ENT normal pinna - Neck no masses - Respiratory normal expansion - Cardiovascular Rhythm: regular - Abdomen Abdomen: soft, non tender Bariatric Assessment & Plan Plan: Patient LAP-BAND was emptied. 1.5 mL was removed from her band. She'll follow- up after her hip surgery for fluid replacement. Bariatric Checklist Checklist: Plan: Checklist: EGD: 1. Hiatal hernia: 2. H. Pylori: HgbA1c: Vitamin D: Smoking: Never smoker Primary care physician referral: Psychiatry clearance: Cardiology clearance: Sleep study: Diet journal: VTE risk score: VTE risk level: Rehab needs at discharge:
== END | disposition home or self-care (01) ==
LOC: BARWHC3 09:09
PROVIDERS: ATTEND Surgery
DX: Z48.815 Encounter for surgical aftercare following surgery on the digestive system (principal); E11.9 Type 2 diabetes mellitus without complications; I10 Essential (primary) hypertension; Z98.84 Bariatric surgery status; Z98.890 Other specified postprocedural states
CPT/HCPCS: 99212

== ENCOUNTER → 2016-10-16 | Outpatient (CLI) | payer MEDICARE | END | disposition home or self-care (01) | LOC: LABWHC1 10:20 | PROVIDERS: ATTEND Family Medicine | DX: G56.23 Lesion of ulnar nerve, bilateral upper limbs (principal) | CPT/HCPCS: 36415; 82607; 82747 ==

== ENCOUNTER → 2017-11-24 | Outpatient (CLI) | payer MEDICARE ==
--- NOTE | 2017-11-26 08:10 | MM ---
Reason for exam: screening (asymptomatic). Last mammogram was performed 2 years ago. History: Patient is postmenopausal and has history of other cancer at age 59. Took hormonal contraceptives beginning at age 24. Physical Findings: A clinical breast exam by your physician is recommended on an annual basis and results should be correlated with mammographic findings. MG 3D Screening Mammo W/Cad Bilateral CC and MLO view(s) were taken. Prior study comparison: December 04, 2015, bilateral MG 3d screening mammo w/cad. November 01, 2014, bilateral MG screening mammo w CAD. There are scattered fibroglandular densities. Finding: There are typically benign round, linear calcifications in both breasts. There is an indeterminate group of calcifications middle posterior depth medial inferior aspect. ASSESSMENT: Incomplete: need additional imaging evaluation, BI-RAD 0 RECOMMENDATION: Special view mammogram of the right breast. [facility] will attempt to contact patient to return for supplemental views.
== END | disposition home or self-care (01) ==
LOC: RADMAMWWP 14:21
PROVIDERS: ATTEND Family Medicine
DX: Z12.31 Encounter for screening mammogram for malignant neoplasm of breast (principal); E11.9 Type 2 diabetes mellitus without complications
CPT/HCPCS: 77063; 77067

== ENCOUNTER → 2017-12-01 | Outpatient (CLI) | payer MEDICARE ==
--- NOTE | 2017-12-02 09:02 | MM ---
Reason for exam: additional evaluation requested from abnormal screening. Last mammogram was performed less than 1 month ago. History: Patient is postmenopausal and has history of other cancer at age 59. Took hormonal contraceptives beginning at age 24. Physical Findings: Nurse did not find any significant physical abnormalities on exam. MG 3D Work Up W/Cad RT Spot compression CC, spot compression MLO, and LM view(s) were taken of the right breast. Prior study comparison: November 24, 2017, bilateral MG 3d screening mammo w/cad. December 04, 2015, bilateral MG 3d screening mammo w/cad. Finding: There are intermediate concern, suspicious dystrophic calcifications in the lower inner quadrant, posterior middle position of the right breast persists on additional views. These results were verbally communicated with the patient and result sheet given to the patient on 12/01/17. ASSESSMENT: Suspicious, BI-RAD 4 RECOMMENDATION: Stereotactic core biopsy of the right breast. Called Dr. Arteaga with mammographic findings and has scheduled an appointment for the patient for 12/23/17 at 9:[address] Davalos. Biopsy scheduled for 12/10/17 at 10:20. PRELIMINARY REPORT CALLED AND FAXED TO DR. DAVALOS ON 12/02/17.
== END | disposition home or self-care (01) ==
LOC: RADMAMWWP 14:05
PROVIDERS: ATTEND Family Medicine
DX: R92.8 Other abnormal and inconclusive findings on diagnostic imaging of breast (principal)
CPT/HCPCS: 77065; G0279; 77061

== ENCOUNTER → 2017-12-10 | Day surgery (SDC) | payer MEDICARE ==
[2017-12-10 09:57] VITALS: RESP 16; BMI 39.6
[2017-12-10 11:24] VITALS: BP 154/84; PULSE 65; TEMP 98.5
--- NOTE | 2017-12-13 11:01 | MM ---
Stereotactic Mammotome core biopsy right breast. HISTORY: Right breast microcalcifications The microcalcifications in question within the right breast were targeted by the undersigned. Procedure was performed by the undersigned. Informed consent was obtained and all of the patients questions were answered. The standard sterile technique was utilized and appropriate local anesthesia was obtained with 1% licocaine. Mammotome probe was advanced and multiple core samples were obtained and sent to pathology for interpretation. Microclip marker was deployed at the site of biopsy. Post procedural mammogram demonstrates appropriate deployment of radiopaque clip marker. The patient tolerated the procedure well and left the department in stable condition. Pathology results are pending. IMPRESSION: Successful stereotactic core biopsy right breast with pathology results pending. Pathology Results: Benign RIGHT BREAST, NEEDLE CORE BIOPSIES: Fibrocystic and fibroadenomatoid changes with coarse intraductal mineralizations. Abundant benign fibroadipose tissue. Recommendation Follow up mammogram of the right breast in 6 months. MARCELLO
== END ==
LOC: RADMAMWWP 09:08
PROVIDERS: ATTEND Surgery
DX: N60.11 Diffuse cystic mastopathy of right breast (principal); R92.1 Mammographic calcification found on diagnostic imaging of breast; R92.8 Other abnormal and inconclusive findings on diagnostic imaging of breast; Z88.1 Allergy status to other antibiotic agents
CPT/HCPCS: 88305; 19081; A4648; J2001

== ENCOUNTER → 2018-02-03 | Outpatient (CLI) | payer MEDICARE ==
--- NOTE | 2018-02-03 12:11 | BD ---
EXAMINATION TYPE: Axial Bone Density DATE OF EXAM: 02/03/2018 CLINICAL HISTORY: Height: 61.5 Weight: 216 FRAX RISK QUESTIONS: Alcohol (3 or more units per day): no Family History (Parent hip fracture): no Glucocorticoids (More than 3mos): no (Ex: prednisone, prednisolone, methylprednisolone, dexamethasone, and hydrocortisone). History of Fracture in Adulthood: yes Secondary Osteoporosis: 1. Type 1 Diabetes: no, type II 2. Hyperthyroidism: no 3. Menopause before 45: yes 4. Malnutrition: no 5. Chronic liver disease: no Rheumatoid Arthritis: no Current Tobacco Use: no RISK FACTORS HISTORY OF: History of Wrist Fracture: yes When: about 1987 Surgery to Hip(right): yes When: 2017 Family History of Osteoporosis: patient thinks her mother Active: yes Diet low in dairy products/other sources of calcium: states no Postmenopausal woman: yes Take estrogen and/or progesterone medications: not now How long: hormonal contraceptives age [age] Lost more than 2 inches in height since high school: no, but states height was about 63 inches at one time Frequent falls: no Poor Health: "OK" health Hyperparathyroidism: no Adrenal Insufficiency: unsure MEDICATIONS: Thyroid Medications: no Osteoporosis Medications: no Additional Medications: meds for diabetes ; cholesterol meds, blood pressure meds Additional History: patient states a kidney value was "level 4" a few months ago but since improved; history of lap band surgery EXAM MEASUREMENTS: Bone mineral densitometry was performed using the [employer]. Bone mineral density as measured about the Lumbar spine is: ----- L1-L4(G/cm2): 1.261 T Score Values are as follows: ----- L2: 0.5 ----- L3: 1.0 ----- L4: 1.1 ----- L1-L4: 0.7 Bone mineral density has: Increased 4.6% since study of: 09/26/2012 Bone mineral density about the L hip (g/cm2): 0.904 T Score values are as follows: -----L Neck: -1.0 -----L Total: -0.1 Bone mineral density left hip has: Increased 3.5% since study of: 09/26/2012 IMPRESSION: No evidence for osteoporosis or osteopenia. NOTE: T-SCORE=SD OF THE YOUNG ADULT MEAN.
== END ==
LOC: RADBDWWP 10:12
PROVIDERS: ATTEND Obstetrics & Gynecology
DX: M85.9 Disorder of bone density and structure, unspecified (principal); M89.9 Disorder of bone, unspecified; Z13.820 Encounter for screening for osteoporosis; Z78.0 Asymptomatic menopausal state
CPT/HCPCS: 77080

== ENCOUNTER → 2018-06-14 | Outpatient (CLI) | payer MEDICARE ==
--- NOTE | 2018-06-14 11:20 | MM ---
Reason for exam: follow-up at short interval from prior study. Last mammogram was performed 6 months ago. History: Patient is postmenopausal and has history of other cancer at age 59. Benign MG stereo VAD BX RT of the right breast, December 10, 2017. Took hormonal contraceptives beginning at age 24. Physical Findings: Nurse did not find any significant physical abnormalities on exam. MG 3D Diag Mammo W/Cad RT CC, MLO, and XCCL view(s) were taken of the right breast. Prior study comparison: December 01, 2017, right breast MG 3d work up w/cad RT. November 24, 2017, bilateral MG 3d screening mammo w/cad. The breast tissue is heterogeneously dense. This may lower the sensitivity of mammography. Benign calcifications in the right breast. No suspicious abnormality. Right biopsy marker. These results were verbally communicated with the patient and result sheet given to the patient on 06/14/18. ASSESSMENT: Benign, BI-RAD 2 RECOMMENDATION: Return to routine screening mammogram schedule for both breasts. Back on schedule.
== END | disposition home or self-care (01) ==
LOC: RADMAMWWP 08:49
PROVIDERS: ATTEND Surgery
DX: R92.8 Other abnormal and inconclusive findings on diagnostic imaging of breast (principal)
CPT/HCPCS: 77065; G0279; 77061

== ENCOUNTER 2018-07-26 14:43 | Emergency (ER) | payer MEDICARE ==
[2018-07-26 14:48] VITALS: RESP 18
[2018-07-26] MEDS ORDERED: ONDANSETRON 4 MG/2 ML VIAL IVP STA (15:31)
[2018-07-26] MEDS ORDERED: SODIUM CHLORIDE 0.9% 500 ML 500 ML IV STA (15:31)
[2018-07-26] MEDS ORDERED: MORPHINE SULFATE 4 MG/ML SYRINGE IV STA (15:31)
[2018-07-26 15:43] LABS: Basophils % (A) 0 %; Eosinophils # (A) 0.1 k/uL (0-0.7); Eosinophils % (A) 1 %; HCT 40.8 % (34.0-46.0); HGB 13.3 gm/dL (11.4-16.0); Lymphocytes # (A) 1.6 k/uL (1.0-4.8); Lymphocytes % (A) 17 %; MCH 28.7 pg (25.0-35.0); MCHC 32.6 g/dL (31.0-37.0); MCV 87.8 fL (80.0-100.0); Mean Platelet Volume 6.5; Monocytes # (A) 0.4 k/uL (0-1.0); Monocytes % (A) 4 %; Neutrophils # (A) 7.2 k/uL (1.3-7.7); Neutrophils % (A) 77 %; Platelet Count 230 k/uL (150-450); RBC 4.64 m/uL (3.80-5.40); RDW 13.6 % (11.5-15.5); WBC 9.4 k/uL (3.8-10.6)
[2018-07-26 15:49] LABS: Amorphous Sediment,Urine Rare /hpf; Appearance,Urine Clear (Clear); Bilirubin,Urine Negative (Negative); Blood,Urine Small (Negative); Color,Urine Yellow; Glucose,Urine (UA) Negative (Negative); Hyaline Casts,Urine 6 /lpf (0-2); Ketones,Urine Negative (Negative); Leukocyte Esterase,Urine Negative (Negative); Mucus,Urine Rare /hpf; Nitrite,Urine Negative (Negative); Protein,Urine Negative (Negative); RBC,Urine 3 /hpf (0-5); Specific Gravity,Urine 1.014 (1.001-1.035); Squamous Epithelial Cell,Urine 5 /hpf (0-4); Urobilinogen,Urine <2.0 mg/dL (<2.0); WBC,Urine 1 /hpf (0-5)
[2018-07-26 15:53] LABS: Albumin 4.5 g/dL (3.5-5.0); Calcium 9.7 mg/dL (8.4-10.2); Potassium 4.6 mmol/L (3.5-5.1); Total Bilirubin 0.5 mg/dL (0.2-1.3); Total Protein 7.7 g/dL (6.3-8.2)
--- NOTE | 2018-07-26 16:01 | ED ---
General Adult HPI - General Chief complaint: Abdominal Pain Stated complaint: right side back & abdominal pain Time Seen by Provider: 07/26/18 15:18 Source: patient, RN notes reviewed Mode of arrival: ambulatory Limitations: no limitations - History of Present Illness Initial comments: 72-year-old female with a past medical history of diabetes, hyperlipidemia, hypertension, osteoarthritis presents to the emergency department for a chief complaint of right upper quadrant pain. Patient states she initially had back pain that then moved to the right upper quadrant. States his all started this morning. States it is a sharp constant pain. Patient does have a history of cholecystectomy as well as appendectomy. Patient has no other complaints at this time including shortness of breath, chest pain, nausea or vomiting, headache, or visual changes. - Related Data Home Medications Medication Instructions Recorded Confirmed Losartan Potassium 100 mg PO DAILY 07/28/16 07/26/18 Aspirin [Adult Low Dose Aspirin EC] 81 mg PO DAILY 12/02/17 07/26/18 Atenolol [Tenormin] 50 mg PO DAILY 12/02/17 07/26/18 Cholecalciferol [Vitamin D3] 1,000 unit PO HS 12/02/17 07/26/18 Glimepiride [Amaryl] 1 mg PO BID 12/02/17 07/26/18 Glucosam/David-Msm1/C/Woo/Bosw 1 tab PO HS 12/02/17 07/26/18 [Glucosamine-Chondroitin Tablet] Simvastatin [Zocor] 10 mg PO HS 12/02/17 07/26/18 Torsemide [Demadex] 5 mg PO DAILY 12/02/17 07/26/18 Garlic 1 tab PO HS 07/26/18 07/26/18 Allergies Allergy/AdvReac Type Severity Reaction Status Date / Time Tetracyclines Allergy Rash/Hives Verified 07/26/18 15:03 Review of Systems ROS Statement: Those systems with pertinent positive or pertinent negative responses have been documented in the HPI. ROS Other: All systems not noted in ROS Statement are negative. Past Medical History Past Medical History: Diabetes Mellitus, Hyperlipidemia, Hypertension, Osteoarthritis (OA), Sleep Apnea/CPAP/BIPAP Additional Past Medical History / Comment(s): HX SKIN CANCER History of Any Multi-Drug Resistant Organisms: None Reported Past Surgical History: Appendectomy, Bariatric Surgery, Cholecystectomy, Hysterectomy, Orthopedic Surgery Additional Past Surgical History / Comment(s): LAPBAND. COLONOSCOPY. EGD. Right hip replacement, nerve release bilateral arms. Past Anesthesia/Blood Transfusion Reactions: No Reported Reaction Additional Past Anesthesia/Blood Transfusion Reaction / Comment(s): NO HX BLOOD TRANSFUSION Past Psychological History: No Psychological Hx Reported Smoking Status: Never smoker Past Alcohol Use History: None Reported Past Drug Use History: None Reported - Past Family History Mother Family Medical History: Deep Vein Thrombosis (DVT) General Exam Limitations: no limitations General appearance: alert, in no apparent distress Head exam: Present: atraumatic, normocephalic, normal inspection Eye exam: Present: normal appearance, PERRL, EOMI. Absent: scleral icterus, conjunctival injection, periorbital swelling ENT exam: Present: normal exam, mucous membranes moist Neck exam: Present: normal inspection, full ROM. Absent: tenderness, mening ismus, lymphadenopathy Respiratory exam: Present: normal lung sounds bilaterally. Absent: respiratory distress, wheezes, rales, rhonchi, stridor Cardiovascular Exam: Present: regular rate, normal rhythm, normal heart sounds. Absent: systolic murmur, diastolic murmur, rubs, gallop, clicks GI/Abdominal exam: Present: soft, tenderness (RUQ tenderness, no guarding present), normal bowel sounds. Absent: distended, guarding, rebound, rigid Neurological exam: Present: alert, oriented X3, CN II-XII intact Psychiatric exam: Present: normal affect, normal mood Course Vital Signs 07/26/18 07/26/18 14:46 19:31 Temperature 98.5 F 97.9 F Pulse Rate 72 70 Respiratory 18 18 Rate Blood Pressure 199/97 184/83 O2 Sat by Pulse 97 96 Oximetry EKG Findings - EKG Comments: EKG Findings:: Normal sinus rhythm, ventricular rate 63, HI interval 162, QTc 442 Medical Decision Making - Medical Decision Making 72-year-old female with a past medical history of diabetes, hyperlipidemia, hypertension, osteoarthritis presents to the emergency department for a chief complaint of right upper quadrant pain. Patient states she initially had back pain that then moved to the right upper quadrant. States this all started this morning. States it is a sharp constant pain. Patient does have a history of cholecystectomy as well as appendectomy. Denies and chest pain or shortness of breath. Vitals are stable on exam. Patient initially hypertensive, likely secondary to pain. On exam patient has RUQ pain with no significant tenderness, no right flank pain or CVA tenderness. No rebound or guarding. CBC unremarkable. CMP does show a creatinine of 1.16, patient states she does have a history of kidney disease. Patient was given fluids. Troponin negative. Urine has small blood. CT abdomen and pelvis with contrast shows no acute process. Did speak with CT who states contrast is okay. There is an incidental finding of a left renal hypodensity that does not fit CT criteria for simple cyst. Chest x-ray did show mild to moderate interstitial vase pulmonary edema which was incidental finding. No SOB/CP. Recommend follow-up for this, patient is aware. Dr. Jeffery also evaluated the patient. Pain does not seem to be consistent in localization. Again nontender. We did speak with Dr. Marques about admission as is requesting this. At this time she does not accept admission secondary to lack of findings. is very argumentative, stating he has not seen PA/doctor even though we have both been in the room several times. Verbal de-escalation was performed, patient was given Toradol but did not want more opioids as morphine made her nauseous. At this time we recommended follow-up with primary care and recommended returning here if she had any worsening symptoms. - Lab Data Result diagrams: 07/26/18 15:11 07/26/18 15:11 Lab Results 07/26/18 07/26/18 07/26/18 Range/Units 15:11 15:11 15:11 WBC 9.4 (3.8-10.6) k/uL RBC 4.64 (3.80-5.40) m/uL Hgb 13.3 (11.4-16.0) gm/dL Hct 40.8 (34.0-46.0) % MCV 87.8 (80.0-100.0) fL MCH 28.7 (25.0-35.0) pg MCHC 32.6 (31.0-37.0) g/dL RDW 13.6 (11.5-15.5) % Plt Count 230 (150-450) k/uL Neutrophils % 77 % Lymphocytes % 17 % Monocytes % 4 % Eosinophils % 1 % Basophils % 0 % Neutrophils # 7.2 (1.3-7.7) k/uL Lymphocytes # 1.6 (1.0-4.8) k/uL Monocytes # 0.4 (0-1.0) k/uL Eosinophils # 0.1 (0-0.7) k/uL Basophils # 0.0 (0-0.2) k/uL Sodium 140 (137-145) mmol/L Potassium 4.6 (3.5-5.1) mmol/L Chloride 106 (98-107) mmol/L Carbon Dioxide 23 (22-30) mmol/L Anion Gap 11 mmol/L BUN 26 H (7-17) mg/dL Creatinine 1.16 H (0.52-1.04) mg/dL Est GFR (CKD-EPI)AfAm 55 (>60 ml/min/1.73 sqM) Est GFR (CKD-EPI)NonAf 48 (>60 ml/min/1.73 sqM) Glucose 104 H (74-99) mg/dL Plasma Lactic Acid Eugenio (0.7-2.0) mmol/L Calcium 9.7 (8.4-10.2) mg/dL Total Bilirubin 0.5 (0.2-1.3) mg/dL AST 27 (14-36) U/L ALT 32 (9-52) U/L Alkaline Phosphatase 82 (38-126) U/L Troponin I <0.012 (0.000-0.034) ng/mL Total Protein 7.7 (6.3-8.2) g/dL Albumin 4.5 (3.5-5.0) g/dL Amylase 78 (30-110) U/L Lipase 192 (23-300) U/L Urine Color Urine Appearance (Clear) Urine pH (5.0-8.0) Ur Specific [place] (1.001-1.035) Urine Protein (Negative) Urine Glucose (UA) (Negative) Urine Ketones (Negative) Urine Blood (Negative) Urine Nitrite (Negative) Urine Bilirubin (Negative) Urine Urobilinogen (<2.0) mg/dL Ur Leukocyte Esterase (Negative) Urine RBC (0-5) /hpf Urine WBC (0-5) /hpf Ur Squamous Epith Cells (0-4) /hpf Amorphous Sediment (None) /hpf Hyaline Casts (0-2) /lpf Urine Mucus (None) /hpf 06/11/19 06/11/19 Range/Units 15:11 15:11 WBC (3.8-10.6) k/uL RBC (3.80-5.40) m/uL Hgb (11.4-16.0) gm/dL Hct (34.0-46.0) % MCV (80.0-100.0) fL MCH (25.0-35.0) pg MCHC (31.0-37.0) g/dL RDW (11.5-15.5) % Plt Count (150-450) k/uL Neutrophils % % Lymphocytes % % Monocytes % % Eosinophils % % Basophils % % Neutrophils # (1.3-7.7) k/uL Lymphocytes # (1.0-4.8) k/uL Monocytes # (0-1.0) k/uL Eosinophils # (0-0.7) k/uL Basophils # (0-0.2) k/uL Sodium (137-145) mmol/L Potassium (3.5-5.1) mmol/L Chloride (98-107) mmol/L Carbon Dioxide (22-30) mmol/L Anion Gap mmol/L BUN (7-17) mg/dL Creatinine (0.52-1.04) mg/dL Est GFR (CKD-EPI)AfAm (>60 ml/min/1.73 sqM) Est GFR (CKD-EPI)NonAf (>60 ml/min/1.73 sqM) Glucose (74-99) mg/dL Plasma Lactic Acid Eugenio 1.4 (0.7-2.0) mmol/L Calcium (8.4-10.2) mg/dL Total Bilirubin (0.2-1.3) mg/dL AST (14-36) U/L ALT (9-52) U/L Alkaline Phosphatase (38-126) U/L Troponin I (0.000-0.034) ng/mL Total Protein (6.3-8.2) g/dL Albumin (3.5-5.0) g/dL Amylase (30-110) U/L Lipase (23-300) U/L Urine Color Yellow Urine Appearance Clear (Clear) Urine pH 5.0 (5.0-8.0) Ur Specific [place] 1.014 (1.001-1.035) Urine Protein Negative (Negative) Urine Glucose (UA) Negative (Negative) Urine Ketones Negative (Negative) Urine Blood Small H (Negative) Urine Nitrite Negative (Negative) Urine Bilirubin Negative (Negative) Urine Urobilinogen <2.0 (<2.0) mg/dL Ur Leukocyte Esterase Negative (Negative) Urine RBC 3 (0-5) /hpf Urine WBC 1 (0-5) /hpf Ur Squamous Epith Cells 5 H (0-4) /hpf Amorphous Sediment Rare H (None) /hpf Hyaline Casts 6 H (0-2) /lpf Urine Mucus Rare H (None) /hpf Disposition Clinical Impression: Abdominal pain, Renal lesion Disposition: HOME SELF-CARE Condition: Good Instructions (If sedation given, give patient instructions): Abdominal Pain (ED) Additional Instructions: Please take Motrin and Tylenol for pain. Follow up with primary care in 1-2 days. Return here to the emergency department if you have any worsening symptoms. Is patient prescribed a controlled substance at d/c from ED?: No Referrals: Mark Arteaga MD [Primary Care Provider] - 1-2 days Time of Disposition: 18:46
--- NOTE | 2018-07-26 16:46 | CT ---
EXAMINATION TYPE: CT abdomen pelvis w con DATE OF EXAM: 07/26/2018 COMPARISON: Abdomen Ultrasound 11/17/2013 HISTORY: Right sided pain with nausea and vomiting. CT DLP: 1658.2 mGycm Automated exposure control for dose reduction was used. TECHNIQUE: Helical acquisition of images was performed from the lung bases through the pelvis. CONTRAST: Performed without Oral Contrast and with IV Contrast, patient injected with 50 mL of Isovue 370. FINDINGS: LUNG BASES: No significant abnormality is appreciated. LIVER/GB: No significant abnormality is appreciated. A few scattered subcentimeter hepatic cysts are noted. PANCREAS: No significant abnormality is seen. SPLEEN: No significant abnormality is seen. ADRENALS: No significant abnormality is seen. KIDNEYS: There is a 1 cm diameter rounded hypodensity within the anterior parenchyma of the mid pole left kidney. This does not fill CT criteria for simple cyst at this time, and it was not seen at the time of the 2014 ultrasound. In any case, dedicated CT or MRI renal protocol without and with contras t is recommended as an outpatient to fully characterize the finding. The right kidney is negative. Upper and lower collecting systems are unremarkable. FREE AIR: No free air is visualized. RETROPERITONEAL ADENOPATHY: None visualized REPRODUCTIVE ORGANS: No significant abnormality is seen URINARY BLADDER: No significant abnormality is seen. PELVIC ADENOPATHY: None visualized. OSSEOUS STRUCTURES: No significant abnormality is seen. BOWEL: No significant abnormality is seen. Gastric lap band noted. OTHER: No acute vascular findings. IMPRESSION: 1. No acute process. 2. Incidental: Left renal finding with follow up imaging recommended.
--- NOTE | 2018-07-26 18:22 | XR ---
EXAMINATION: XR chest 2V DATE AND TIME: 07/26/2018 5:32 PM CLINICAL INDICATION: PHH; Pain TECHNIQUE: Departmental protocol COMPARISON: 09/15/2016 FINDINGS: Marked enlargement of the cardiac silhouette, which was seen on the prior study. There is a fine reticular pattern of increased density silhouetting the pulmonary vasculature symmetr ically to a [id number] degree. Findings are consistent with mild/moderate interstitial phase pu lmonary edema, cardiogenic versus noncardiogenic etiology can't be clinically delineated. No focal lung consolidative opacities. The pleural spaces are negative. No acute skeletal or soft tissue findings. Catheter noted over the epigastrium. IMPRESSION: [id number] interstitial phase pulmonary edema.
[2018-07-26] MEDS ORDERED: KETOROLAC 30 MG/ML 1 ML VIAL IVP STA (18:46)
[2018-07-26] MEDS ORDERED: METOCLOPRAMIDE 5 MG/ML 2 ML VIAL IVP STA (18:47)
[2018-07-26] MEDS ORDERED: diphenhydrAMINE 50 MG/ML 1 ML VIAL IVP STA (18:47)
[2018-07-26 19:32] VITALS: BP 184/83; PULSE 70; TEMP 97.9
[2018-07-26] MEDS ORDERED: ACET/COD 300 MG/30 MG STARTER PACK 6 TAB BTL PO STA (19:33)
[2018-07-26] MEDS ORDERED: ONDANSETRON 4 MG ODT STARTER PACK 2 TAB BTL PO STA (19:33)
== END 2018-07-26 19:35 | disposition home or self-care (01) ==
LOC: EC 14:43
DX: R10.11 Right upper quadrant pain (principal); N28.9 Disorder of kidney and ureter, unspecified; J81.1 Chronic pulmonary edema; R31.9 Hematuria, unspecified; E11.9 Type 2 diabetes mellitus without complications; E78.5 Hyperlipidemia, unspecified; I10 Essential (primary) hypertension; M19.90 Unspecified osteoarthritis, unspecified site; G47.30 Sleep apnea, unspecified; Z99.89 Dependence on other enabling machines and devices; Z87.448 Personal history of other diseases of urinary system; Z85.828 Personal history of other malignant neoplasm of skin; Z90.49 Acquired absence of other specified parts of digestive tract; Z98.84 Bariatric surgery status; Z90.710 Acquired absence of both cervix and uterus; Z96.641 Presence of right artificial hip joint; Z79.82 Long term (current) use of aspirin; Z79.84 Long term (current) use of oral hypoglycemic drugs; Z79.899 Other long term (current) drug therapy; Z88.1 Allergy status to other antibiotic agents
CPT/HCPCS: 99285; 96374; 96375 ×4; 36415; 93005; 80053; 82150; 83605; 83690; 84484; 85025; 81001; 71046; 74177; J2270; J1200; J2765; J2405; J1885; S0119; Q9967

== ENCOUNTER → 2018-11-25 | Outpatient (CLI) | payer MEDICARE ==
--- NOTE | 2018-11-28 09:14 | MM ---
Reason for exam: screening (asymptomatic). Last mammogram was performed 5 months ago. History: Patient is postmenopausal and has history of other cancer at age 59. Benign MG stereo VAD BX RT of the right breast, December 10, 2017. Took hormonal contraceptives beginning at age 24. Physical Findings: A clinical breast exam by your physician is recommended on an annual basis and results should be correlated with mammographic findings. MG 3D Screening Mammo W/Cad Bilateral CC and MLO view(s) were taken. Prior study comparison: June 14, 2018, right breast MG 3d diag mammo w/cad RT. December 01, 2017, right breast MG 3d work up w/cad RT. There are scattered fibroglandular densities. Benign appearing bilateral calcifications. No suspicious abnormality. No significant changes when compared with prior studies. ASSESSMENT: Benign, BI-RAD 2 RECOMMENDATION: Routine screening mammogram of both breasts in 1 year.
== END | disposition home or self-care (01) ==
LOC: RADMAMWWP 11:05
PROVIDERS: ATTEND Family Medicine
DX: Z12.31 Encounter for screening mammogram for malignant neoplasm of breast (principal)
CPT/HCPCS: 77063; 77067

== ENCOUNTER → 2019-12-08 | Outpatient (CLI) | payer MEDICARE ==
--- NOTE | 2019-12-12 08:14 | MM ---
Reason for exam: screening (asymptomatic). Last mammogram was performed 1 year ago. History: Patient is postmenopausal and has history of other cancer at age 59. Benign MG stereo VAD BX RT of the right breast, December 10, 2017. Took hormonal contraceptives beginning at age 24. Physical Findings: A clinical breast exam by your physician is recommended on an annual basis and results should be correlated with mammographic findings. MG 3D Screening Mammo W/Cad Bilateral CC and MLO view(s) were taken. Prior study comparison: November 25, 2018, bilateral MG 3d screening mammo w/cad. November 24, 2017, bilateral MG 3d screening mammo w/cad. December 04, 2015, bilateral MG 3d screening mammo w/cad. There are scattered fibroglandular densities. Scattered punctate and small benign secretory calcifications of the right breast. No significant changes when compared with prior studies. ASSESSMENT: Negative, BI-RAD 1 RECOMMENDATION: Routine screening mammogram of both breasts in 1 year.
== END | disposition home or self-care (01) ==
LOC: RADMAMWWP 10:47
PROVIDERS: ATTEND Obstetrics & Gynecology
DX: Z12.31 Encounter for screening mammogram for malignant neoplasm of breast (principal)
CPT/HCPCS: 77063; 77067

== ENCOUNTER → 2021-01-02 | Outpatient (CLI) | payer MEDICARE ==
--- NOTE | 2021-01-03 11:43 | MM ---
Reason for exam: screening (asymptomatic). Last mammogram was performed 1 year and 1 month ago. History: Patient is postmenopausal and has history of other cancer at age 59. Benign MG stereo VAD BX RT of the right breast, December 10, 2017. Took hormonal contraceptives beginning at age 24. Physical Findings: A clinical breast exam by your physician is recommended on an annual basis and results should be correlated with mammographic findings. MG 3D Screening Mammo W/Cad Bilateral CC and MLO view(s) were taken. Prior study comparison: December 08, 2019, bilateral MG 3d screening mammo w/cad. November 25, 2018, bilateral MG 3d screening mammo w/cad. There are scattered fibroglandular densities. There are benign appearing round linear calcifications bilaterally. Previous mammotome biopsy in the right breast. There is no discrete abnormality. ASSESSMENT: Benign, BI-RAD 2 RECOMMENDATION: Routine screening mammogram of both breasts in 1 year.
== END ==
LOC: RADMAMWWP 09:44
PROVIDERS: ATTEND Obstetrics & Gynecology
DX: Z12.31 Encounter for screening mammogram for malignant neoplasm of breast (principal); R92.8 Other abnormal and inconclusive findings on diagnostic imaging of breast
CPT/HCPCS: 77063; 77067

== ENCOUNTER 2021-07-15 04:39 | Emergency (ER) | payer MEDICARE ==
[2021-07-15 04:45] VITALS: TEMP 98.7
[2021-07-15] MEDS ORDERED: POLYMYXIN B-TRIMETHOPRIM SULF (10,000-1) OPHTH DROPS 10 ML BTL BOTH EYES STA (04:45)
[2021-07-15] MEDS ORDERED: AMOXIC-POT CLAV 875MG STARTER PACK 2 TAB BTL PO STA (05:31)
--- NOTE | 2021-07-15 05:33 | ED ---
URI HPI - General Chief Complaint: Eye Problems Stated Complaint: eye problem, flu symptoms Time Seen by Provider: 07/15/21 04:45 Source: patient, RN notes reviewed, old records reviewed Mode of arrival: wheelchair Limitations: no limitations - History of Present Illness Initial Comments: This is a 75-year-old female to the emergency department with multiple complaints today. Patient complains of runny nose and congestion ear pain and fullness sore throat cough continued congestion. No family members with similar symptoms. No fevers. She has have some bodyaches and pains but no travel history. Patient with history of diabetes high blood pressure high cholesterol MD Complaint: cough, sore throat, nasal congestion, sinus pain -: days(s) Severity: mild Severity scale (1-10): 4 Quality: dull, aching Consistency: intermittent Improves With: nothing Worsens With: activity, deep breaths Associated Symptoms: chills, diaphoresis Treatments Prior to Arrival: none - Related Data Home Medications Medication Instructions Recorded Confirmed Losartan Potassium 100 mg PO DAILY 07/28/16 07/26/18 Aspirin [Adult Low Dose Aspirin EC] 81 mg PO DAILY 12/02/17 07/26/18 Cholecalciferol [Vitamin D3] 1,000 unit PO HS 12/02/17 07/26/18 Glimepiride [Amaryl] 1 mg PO BID 12/02/17 07/26/18 Glucosam/David-Msm1/C/Woo/Bosw 1 tab PO HS 12/02/17 07/26/18 [Glucosamine-Chondroitin Tablet] Simvastatin [Zocor] 10 mg PO HS 12/02/17 07/26/18 Torsemide [Demadex] 5 mg PO DAILY 12/02/17 07/26/18 atenoloL [Tenormin] 50 mg PO DAILY 12/02/17 07/26/18 Garlic 1 tab PO HS 07/26/18 07/26/18 Previous Rx's Medication Instructions Recorded Amoxic-Pot Clav 875-125Mg 1 tab PO Q12HR #20 tablet 07/15/21 [Augmentin 875-125] Allergies Allergy/AdvReac Type Severity Reaction Status Date / Time Tetracyclines Allergy Rash/Hives Verified 07/15/21 04:45 Review of Systems ROS Statement: Those systems with pertinent positive or pertinent negative responses have been documented in the HPI. ROS Other: All systems not noted in ROS Statement are negative. Past Medical History Past Medical History: Diabetes Mellitus, Hyperlipidemia, Hypertension, Osteoarthritis (OA), Sleep Apnea/CPAP/BIPAP Additional Past Medical History / Comment(s): HX SKIN CANCER History of Any Multi-Drug Resistant Organisms: None Reported Past Surgical History: Appendectomy, Bariatric Surgery, Cholecystectomy, Hysterectomy, Orthopedic Surgery Additional Past Surgical History / Comment(s): LAPBAND. COLONOSCOPY. EGD. Right hip replacement, nerve release bilateral arms. Past Anesthesia/Blood Transfusion Reactions: No Reported Reaction Additional Past Anesthesia/Blood Transfusion Reaction / Comment(s): NO HX BLOOD TRANSFUSION Past Psychological History: No Psychological Hx Reported Past Alcohol Use History: None Reported Past Drug Use History: None Reported - Past Family History Mother Family Medical History: Deep Vein Thrombosis (DVT) General Exam Limitations: no limitations General appearance: alert, in no apparent distress Head exam: Present: atraumatic, normocephalic, normal inspection Eye exam: Present: normal appearance, PERRL, EOMI. Absent: scleral icterus, conjunctival injection, periorbital swelling ENT exam: Present: normal exam, mucous membranes moist Neck exam: Present: normal inspection. Absent: tenderness, meningismus, lymphadenopathy Respiratory exam: Present: normal lung sounds bilaterally. Absent: respiratory distress, wheezes, rales, rhonchi, stridor Cardiovascular Exam: Present: regular rate, normal rhythm, normal heart sounds. Absent: systolic murmur, diastolic murmur, rubs, gallop, clicks GI/Abdominal exam: Present: soft, normal bowel sounds. Absent: distended, tenderness, guarding, rebound, rigid Extremities exam: Present: normal inspection, full ROM, normal capillary refill. Absent: tenderness, pedal edema, joint swelling, calf tenderness Back exam: Present: normal inspection Neurological exam: Present: alert, oriented X3, CN II-XII intact Psychiatric exam: Present: normal affect, normal mood Skin exam: Present: warm, dry, intact, normal color. Absent: rash Course Vital Signs 07/15/21 07/15/21 07/15/21 04:40 05:03 05:52 Temperature 98.7 F Pulse Rate 95 85 Respiratory 20 16 Rate Blood Pressure 155/85 166/89 O2 Sat by Pulse 96 98 96 Oximetry - Reevaluation(s) Reevaluation #1: 07/15/21 Medical records reviewed Reevaluation #2: 07/15/21 Patient informed of results and questions answered Reevaluation #3: 07/15/21 Patient feels improved and okay for discharge home Medical Decision Making - Medical Decision Making 75 female to the emergency department for evaluation presented today for evaluation of frustrated infection pharyngitis and sinusitis. Patient placed on antibiotics feels better and can be discharged home Disposition Clinical Impression: Sinusitis, Bacterial conjunctivitis, Bronchitis Disposition: HOME SELF-CARE Condition: Good Instructions (If sedation given, give patient instructions): Sinusitis (ED), Barotitis Media (ED), Acute Bronchitis (ED), Conjunctivitis (ED) Prescriptions: Amoxic-Pot Clav 875-125Mg [Augmentin 875-125] 1 tab PO Q12HR #20 tablet Is patient prescribed a controlled substance at d/c from ED?: No Referrals: Mark Arteaga MD [Primary Care Provider] - 1-2 days Time of Disposition: 05:30
[2021-07-15 05:54] VITALS: BP 166/89; PULSE 85; RESP 16
== END 2021-07-15 05:54 | disposition home or self-care (01) ==
LOC: EC 04:39
DX: J40 Bronchitis, not specified as acute or chronic (principal); H10.10 Acute atopic conjunctivitis, unspecified eye; J32.9 Chronic sinusitis, unspecified; E11.9 Type 2 diabetes mellitus without complications; I10 Essential (primary) hypertension; E78.5 Hyperlipidemia, unspecified; Z88.1 Allergy status to other antibiotic agents

== ENCOUNTER → 2021-09-01 | Outpatient (CLI) | payer MEDICARE ==
--- NOTE | 2021-09-01 11:13 | CT ---
EXAMINATION TYPE: CT soft tissue neck w con CT DLP: 611.60 mGycm, Automated exposure control for dose reduction was used. DATE OF EXAM: 09/01/2021 11:00 AM COMPARISON: None. CLINICAL INDICATION:Female, 75 years old with history of R22.1 LOCALIZED SWELLING, MASS AND LUMP, NEC K, Mass left side neck, parotid area TECHNIQUE: Standard enhanced CT of the neck following intravenous administration of 100 cc of Isovue 300. Axial sections with coronal and sagittal reformats were obtained. Contrast used:65 mL of Isovue 300 with IV Contrast, Oral contrast used: None FINDINGS: Brain: Visualized portions are grossly unremarkable. Orbits: Unremarkable Sinuses: Mild paranasal sinus disease most pronounced involving the right sphenoid sinus. Spaces of t he neck: Palpable marker on the left neck correlates with the left parotid gland. No adjacent fat str anding changes identified. No mass. Musculoskeletal: No acute osseous pathology. Degenerative disc disease changes of the visualized spin e are present. There is asymmetric left markedly degeneration changes of the temporal mandibular join t with multiple suspected joint bodies present. The largest joint body measures up to 12 mm. There is subchondral cystic changes of the condyloid process as well as sclerosis. Findings on the right are also present to a lesser degree. Lymph nodes: Multiple nonenlarged lymph nodes are seen along both anterior chains of the neck. Vascular structures: Visualized major arteries are patent without evidence of aneurysm. Thoracic Inlet/airway: Airway is patent. The lung apices are clear. Soft tissues/Thyroid: Thyroid and remainder of the soft tissues are unremarkable. IMPRESSION 1. No definite evidence for abnormality at the area of palpable marker overlying the left parotid gla nd. No evidence for acute infectious process. 2. 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 Palpable marker w as 4.7 cm below where an expected palpable abnormality might be felt for this. Correlate clinically.
== END | disposition home or self-care (01) ==
LOC: RADCTMAIN 09:59
PROVIDERS: ATTEND Otolaryngology
DX: R22.1 Localized swelling, mass and lump, neck (principal)
CPT/HCPCS: 82565; 84520; 70491; 36415; Q9967

== ENCOUNTER → 2022-01-06 | Outpatient (CLI) | payer MEDICARE ==
--- NOTE | 2022-01-07 07:42 | MM ---
Reason for Exam: Screening (asymptomatic). Last screening mammogram was performed 12 month(s) ago. Patient History: Menarche at age 14. First Full-Term at age 24. Hysterectomy at age 37. Postmenopausal. Other cancer, age 59. Hormonal Contraceptives, from age 24 until age 32. 12/10/2017, Benign Core Biopsy on the right side. Risk Values: Katie 5 year model risk: 1.9%. NCI Lifetime model risk: 4.3%. Prior Study Comparison: 11/25/2018 Bilateral Screening Mammogram, [facility]. 12/08/2019 Bilateral Screening Mammogram, [facility]. 01/02/2021 Bilateral Screening Mammogram, [facility]. Tissue Density: There are scattered fibroglandular densities. Findings: Analyzed By CAD. There is no suspicious group of microcalcifications or new suspicious mass in either breast. Overall Assessment: Benign, BI-RAD 2 Management: Screening Mammogram of both breasts in 1 year. A clinical breast exam by your physician is recommended on an annual basis and results should be correlated with mammographic findings. Electronically signed and approved by: Maurilio Garcia M.D. Radiologis
== END | disposition home or self-care (01) ==
LOC: RADMAMWWP 09:09
PROVIDERS: ATTEND Obstetrics & Gynecology
DX: Z12.31 Encounter for screening mammogram for malignant neoplasm of breast (principal); Z78.0 Asymptomatic menopausal state
CPT/HCPCS: 77063; 77067